=== PATIENT | male | born 1980 | race Caucasian/White ===

== ENCOUNTER 2025-04-03 14:35 | Emergency (ER) | payer MEDICARE, OTHER ==
[2025-04-03] MEDS ORDERED: Sodium Chloride 0.9% 10 ML Syringe FLUSH PRN (14:56)
[2025-04-03 15:06] LABS: BASOPHILS ABSOLUTE AUTO 0.05 10^3/uL (0.00-0.10); BASOPHILS PERCENT AUTO 0.5 % (0.0-1.0); EOSINOPHILS ABSOLUTE AUTO 0.21 10^3/uL (0.10-0.30); EOSINOPHILS PERCENT AUTO 2.2 % (1.0-3.0); IMMATURE GRAN ABSOLUTE AUTO 0.07 10^3/uL (0.00-0.04); IMMATURE GRAN PERCENT AUTO 0.7 % (0.0-0.4); LYMPHOCYTES ABSOLUTE AUTO 2.47 10^3/uL (1.00-4.00); LYMPHOCYTES PERCENT AUTO 26.2 % (20.0-40.0); MEAN PLATELET VOLUME 8.9 fL (7.4-10.4); MONOCYTES ABSOLUTE AUTO 0.72 10^3/uL (0.10-0.80); MONOCYTES PERCENT AUTO 7.6 % (2.0-8.0); NEUTROPHILS ABSOLUTE AUTO 5.90 10^3/uL (2.50-7.00); NEUTROPHILS PERCENT AUTO 62.8 % (50.0-70.0); PLATELET COUNT,PLT 359 10^3/uL (150-400); RED BLOOD CELL COUNT 5.22 10^6/uL (4.50-6.00); RED CELL DISTRIBUTION WIDTH 11.5 % (11.5-14.5); WHITE BLOOD CELL COUNT,WBC 9.42 10^3/uL (5.00-10.00)
[2025-04-03 15:25] LABS: ALANINE AMINOTRANSFERASE,ALT 46 U/L (14-63); ASPARTATE AMNIOTRANSFERASE,AST 14 U/L (15-37); BILIRUBIN TOTAL 0.5 mg/dL (0.2-1.0); BLOOD UREA NITROGEN,BUN 17 mg/dL (7-18); CARBON DIOXIDE,CO2 29.9 mmol/L (21.0-32.0); CHLORIDE,CL 103 mmol/L (98-107); CREATININE 1.15 mg/dL (0.51-1.17); GLUCOSE RANDOM 152 mg/dL (70-140); POTASSIUM,K 4.6 mmol/L (3.5-5.1); PROTEIN TOTAL,TP 6.6 g/dL (6.4-8.2); SODIUM,NA 140 mmol/L (136-145)
[2025-04-03 15:26] LABS: ESTIMATED GFR 79 mL/min (>=60)
[2025-04-03 15:29] LABS: B-TYPE NATRIURETIC PEPTIDE,BNP < 5 pg/mL (0-100)
[2025-04-03 16:38] LABS: APPEARANCE,URINE CLEAR (CLEAR); GLUCOSE,URINE 100 mg/dL (NEGATIVE); OCCULT BLOOD,URINE NEGATIVE (NEGATIVE)
== END 2025-04-03 18:15 ==
LOC: KA.ED 14:35
DX: R00.0 Tachycardia, unspecified (principal); E86.0 Dehydration; Z79.51 Long term (current) use of inhaled steroids; Z79.82 Long term (current) use of aspirin; Z79.85 Long-term (current) use of injectable non-insulin antidiabetic drugs; Z79.4 Long term (current) use of insulin; Z79.84 Long term (current) use of oral hypoglycemic drugs; Z79.899 Other long term (current) drug therapy
CPT/HCPCS: 36415; 71045; 80053; 81003; 83605; 83880; 84484; 85025; 85379; 87428-QW; 93010; 96360; 96361; 99284; 99285-25; J7030

== ENCOUNTER 2025-06-09 18:33 | Observation (INO) | payer OTHER ==
[2025-06-09] MEDS ORDERED: Sodium Chloride 0.9% 10 ML Syringe FLUSH PRN (18:37)
[2025-06-09 18:50] LABS: BASOPHILS ABSOLUTE AUTO 0.05 10^3/uL (0.00-0.10); BASOPHILS PERCENT AUTO 0.5 % (0.0-1.0); EOSINOPHILS ABSOLUTE AUTO 0.52 10^3/uL (0.10-0.30); EOSINOPHILS PERCENT AUTO 4.8 % (1.0-3.0); IMMATURE GRAN ABSOLUTE AUTO 0.11 10^3/uL (0.00-0.04); IMMATURE GRAN PERCENT AUTO 1.0 % (0.0-0.4); LYMPHOCYTES ABSOLUTE AUTO 3.11 10^3/uL (1.00-4.00); LYMPHOCYTES PERCENT AUTO 28.6 % (20.0-40.0); MEAN PLATELET VOLUME 8.9 fL (7.4-10.4); MONOCYTES ABSOLUTE AUTO 0.99 10^3/uL (0.10-0.80); MONOCYTES PERCENT AUTO 9.1 % (2.0-8.0); NEUTROPHILS ABSOLUTE AUTO 6.10 10^3/uL (2.50-7.00); NEUTROPHILS PERCENT AUTO 56.0 % (50.0-70.0); PLATELET COUNT,PLT 343 10^3/uL (150-400); RED BLOOD CELL COUNT 5.13 10^6/uL (4.50-6.00); RED CELL DISTRIBUTION WIDTH 12.3 % (11.5-14.5); WHITE BLOOD CELL COUNT,WBC 10.88 10^3/uL (5.00-10.00)
[2025-06-09 19:08] LABS: ALANINE AMINOTRANSFERASE,ALT 76 U/L (14-63); ASPARTATE AMNIOTRANSFERASE,AST 26 U/L (15-37); BILIRUBIN TOTAL 0.5 mg/dL (0.2-1.0); BLOOD UREA NITROGEN,BUN 14 mg/dL (7-18); CARBON DIOXIDE,CO2 21.6 mmol/L (21.0-32.0); CHLORIDE,CL 101 mmol/L (98-107); CREATININE 0.78 mg/dL (0.51-1.17); ESTIMATED GFR 111 mL/min (>=60); GLUCOSE RANDOM 263 mg/dL (70-140); POTASSIUM,K 4.4 mmol/L (3.5-5.1); PROTEIN TOTAL,TP 6.4 g/dL (6.4-8.2); SODIUM,NA 135 mmol/L (136-145)
[2025-06-09] MEDS: Metoprolol Tartrate 5 MG/5 ML SDV IVPUSH ONE (19:29)
[2025-06-09] MEDS: Ondansetron 4 MG/2 ML SDV IVPUSH ONE (20:02)
[2025-06-09] MEDS ORDERED: Ondansetron 4 MG/2 ML SDV IV PRN (21:11)
[2025-06-09] MEDS ORDERED: 50% Dextrose in Water 50 ML Syringe IVPUSH PRN (21:24)
[2025-06-09] MEDS ORDERED: Aluminum Hydroxide/Magnesium Hydroxide/Simethicone Susp 30 ML Cup PO PRN (21:24)
[2025-06-09] MEDS ORDERED: Glucose Gel 15 GM in 37.5 GM Tube PO PRN (21:24)
[2025-06-09 22:20] LABS: LACTIC ACID 4.6 mmol/L (0.4-2.0)
[2025-06-09] MEDS: Magnesium Sulfate 2 GM/50 mL 2 GM in Premix Bag 1 BAG IV ONE (22:21)
[2025-06-10 04:28] LABS: LACTIC ACID 1.0 mmol/L (0.4-2.0)
[2025-06-10 06:32] LABS: APPEARANCE,URINE CLEAR (CLEAR); GLUCOSE,URINE NEGATIVE (NEGATIVE); OCCULT BLOOD,URINE NEGATIVE (NEGATIVE)
[2025-06-10 06:45] LABS: SQUAMOUS EPITHELIAL CELLS,UR NOT SEEN /HPF (NOT SEEN)
[2025-06-10 07:05] LABS: BASOPHILS ABSOLUTE AUTO 0.03 10^3/uL (0.00-0.10); BASOPHILS PERCENT AUTO 0.4 % (0.0-1.0); EOSINOPHILS ABSOLUTE AUTO 0.39 10^3/uL (0.10-0.30); EOSINOPHILS PERCENT AUTO 5.3 % (1.0-3.0); IMMATURE GRAN ABSOLUTE AUTO 0.07 10^3/uL (0.00-0.04); IMMATURE GRAN PERCENT AUTO 0.9 % (0.0-0.4); LYMPHOCYTES ABSOLUTE AUTO 2.74 10^3/uL (1.00-4.00); LYMPHOCYTES PERCENT AUTO 37.1 % (20.0-40.0); MEAN PLATELET VOLUME 8.9 fL (7.4-10.4); MONOCYTES ABSOLUTE AUTO 0.70 10^3/uL (0.10-0.80); MONOCYTES PERCENT AUTO 9.5 % (2.0-8.0); NEUTROPHILS ABSOLUTE AUTO 3.46 10^3/uL (2.50-7.00); NEUTROPHILS PERCENT AUTO 46.8 % (50.0-70.0); PLATELET COUNT,PLT 219 10^3/uL (150-400); RED BLOOD CELL COUNT 4.15 10^6/uL (4.50-6.00); RED CELL DISTRIBUTION WIDTH 12.2 % (11.5-14.5); WHITE BLOOD CELL COUNT,WBC 7.39 10^3/uL (5.00-10.00)
[2025-06-10 07:19] LABS: BLOOD UREA NITROGEN,BUN 11.0 mg/dL (7-18); CARBON DIOXIDE,CO2 28.6 mmol/L (21.0-32.0); CHLORIDE,CL 108.0 mmol/L (98-107); CREATININE 0.86 mg/dL (0.51-1.17); EST CRCL DRUG DOSING (CG) 99.28 mL/min; GLUCOSE RANDOM 112.0 mg/dL (70-140); POTASSIUM,K 4.0 mmol/L (3.5-5.1); SODIUM,NA 141.0 mmol/L (136-145)
[2025-06-10 07:20] LABS: ESTIMATED GFR 107.0 mL/min (>=60)
[2025-06-10] MEDS: Omeprazole 20 MG Cap.CR PO SCH (09:04)
[2025-06-10] MEDS: Mometasone Furoate Powder 220 MCG/Puff 14 Dose Inhaler INH SCH (09:05)
[2025-06-10] MEDS: Insulin Glargine,Human Rec. Analog 100 Units/ML 3 ML Pen SUBCUT SCH (09:06)
== END 2025-06-10 11:20 ==
LOC: KA.ED 18:33 → KA.MS 19:52
PROVIDERS: ADMIT Internal Medicine; ATTEND Internal Medicine
DX: R07.9 Chest pain, unspecified (principal); R00.0 Tachycardia, unspecified; E86.0 Dehydration; R65.10 Systemic inflammatory response syndrome (SIRS) of non-infectious origin without acute organ dysfunction; E87.20 Acidosis, unspecified; I10 Essential (primary) hypertension; E11.9 Type 2 diabetes mellitus without complications; E66.9 Obesity, unspecified; Z68.30 Body mass index [BMI] 30.0-30.9, adult; Z79.4 Long term (current) use of insulin; Z79.82 Long term (current) use of aspirin; Z79.84 Long term (current) use of oral hypoglycemic drugs; Z87.891 Personal history of nicotine dependence; Z79.899 Other long term (current) drug therapy
CPT/HCPCS: 36415; 71045; 80048; 80053; 81001; 83605; 83690; 83735; 84484; 85025; 85379; 87040; 93010; 96361; 96374; 96375; 99284; 99285-25; A6212; A9270-GY; J1650; J1815-GY; J2270; J2405; J3475; J3490; J7030; Q3014